=== PATIENT | female | born 1995 | race Two or more races ===

== ENCOUNTER 2023-12-06 14:44 | Emergency (ER) | payer SELFPAY ==
[~2023-12-06] VITALS: Ht 142.2 cm; Wt 86.5 kg
[2023-12-06 16:27] VITALS: BP 120/70; PULSE 94; RESP 94; TEMP 98.3; O2SAT 95
[2023-12-06] MEDS ORDERED: FLUO0.054 TOP (16:51)
== END 2023-12-06 17:06 | disposition home or self-care (01) ==
LOC: ER 14:44
DX: L30.9 Dermatitis, unspecified (principal)